=== PATIENT | male | born 2000 | race Caucasian/White ===

== ENCOUNTER 2020-06-18 23:25 | Emergency (ER) | payer OTHER ==
[~2020-06-18] VITALS: Ht 180.3 cm; Wt 97.5 kg
[~2020-06-18 23:25] MED LIST: ALBUTEROL INHAL17 GM IH; AZITHROMYC200 MG/51 PO; KEFLEX500 M1 PO; NASACORT AQ16.5 GM NASAL; NOHOMEMEDICATIONS; PREDNISONE 10 M10 MG PO; ZYRTEC10 MG PO
[2020-06-19 00:20] LABS: ABSOLUTE BASOPHILS 0.1 thou/uL (0.0-0.2); ABSOLUTE LYMPHOCYTES 2.2 thou/uL (0.8-5.3); ABSOLUTE MONOCYTES 1.2 thou/uL (0.0-1.2); ABSOLUTE NEUTROPHILS 16.2 thou/uL (1.6-8.1); BASOPHILS 0.3 %; EOSINOPHILS 0.2 %; HEMATOCRIT 43.9 % (42.0-52.0); HEMOGLOBIN 14.8 gm/dL (14.0-18.0); LYMPHOCYTES 11.2 %; MCH 29.7 pg (26.0-34.0); MCHC 33.7 g/dL (28.0-37.0); MCV 88.2 fL (80.0-100.0); MONOCYTES 6.1 %; MPV 8.2 fl. (7.2-11.1); NUCLEATED RBCS 0 /100WBC; PLATELET COUNT* 329 thou/uL (150-400); POLYS 82.2 %; RBC 4.97 mil/uL (4.50-6.00); RDW-CV 12.4 % (10.5-14.5); WBC 19.7 thou/uL (4.0-11.0)
[2020-06-19 00:25] LABS: CALCIUM 8.7 mg/dL (8.5-10.1); CREATININE 1.3 mg/dL (0.6-1.3); POTASSIUM 3.1 mmol/L (3.5-5.1)
[2020-06-19 00:29] LABS: ALBUMIN 4.6 g/dL (3.4-5.0); TOTAL BILIRUBIN 0.3 mg/dL (<0.1-1.0); TOTAL PROTEIN 8.1 g/dL (6.4-8.2)
[2020-06-19 03:21] LABS: AMP/METHAMP Negative (Negative); BARBITURATES Negative (Negative); COCAINE Negative (Negative); METHADONE Negative (Negative); OPIATES Negative (Negative); PCP Negative (Negative); THC POSITIVE (Negative)
[2020-06-19 03:46] LABS: BENZODIAZEPINES Negative (Negative)
[2020-06-19] MEDS ORDERED: CARAFATE 1 GM TA1 GM PO (05:01)
[2020-06-19] MEDS ORDERED: PROTONIX40 MG PO (05:01)
[2020-06-19] MEDS ORDERED: ZOFRAN ODT4 MG PO (05:01)
[2020-06-19 05:25] VITALS: BP 101/48
--- NOTE | 2020-06-21 08:46 | EKG ---
[place] [address] ELECTROCARDIOGRAM REPORT Name: JENNY WHITE Room: [facility]#: [id number] Admission: 06/18/20 Attend Phys: Discharge: 06/19/20 Date of : 89 Date of Service: 06/18/20 2333 Report #: [id number] THIS REPORT FOR: //name// [facility] ED Test Date: 2020-06-18 Test Time: 23:33:55 Pat Name: JENNY WHITE Department: Room: Gender: Captain Waiter: [place] : 2000 Requested By: Emily Silveira Order Number: [id number] MD: Fidel Whitaker Measurements Intervals [place] Rate: 124 P: 62 NC: 139 QRS: 70 QRSD: 113 T: -6 QT: 328 QTc: 471 Interpretive Statements Sinus tachycardia Borderline intraventricular conduction delay Nonspecific T abnormalities, anterior leads Borderline prolonged QT interval No previous ECG available for comparison Electronically Signed On 06-21-2020 8:45:58 [employer] CONSULTANT by Fidel Whitaker [email or web address] <ELECTRONICALLY SIGNED> By: Murtaza Whitaker MD, [facility] 06/21/20 0845 233 [id number] Murtaza Whitaker MD, [facility] /EPI
== END 2020-06-19 05:27 | disposition home or self-care (01) ==
LOC: M.ERS 23:25
PROVIDERS: Emergency Medicine
DX: R41.82 Altered mental status, unspecified (principal); K52.9 Noninfective gastroenteritis and colitis, unspecified; R55 Syncope and collapse; R11.2 Nausea with vomiting, unspecified; R07.89 Other chest pain; J45.909 Unspecified asthma, uncomplicated; Z91.010 Allergy to peanuts